=== PATIENT | female | born 1955 | race Caucasian/White ===

== ENCOUNTER 2017-02-05 11:16 | Emergency (ER) | payer OTHER ==
[2017-02-05] MEDS ORDERED: Ondansetron HCl/PF 4 MG/2 ML Vial ONE (12:15)
[2017-02-05 12:16] LABS: #Basophils 0.1 thou/uL (0.0-0.2); #Eosinphils 0.3 thou/uL (0.0-0.7); #Monocytes 0.9 thou/uL (0.11-0.59); #Neutrophils 5.9 thou/uL (1.40-6.50); %Basophils 1.1 % (0.0-1.0); %Lymphocytes 21.9 % (21.0-51.0); %Monocytes 9.5 % (0.0-10.0); Hematocrit 39.1 % (36.0-47.0); Mean Platelet Volume 7.7 fL (7.4-10.4); Red Blood Cell (RBC) Count 4.27 mill/uL (4.20-5.40); White Blood Cell (WBC) Count 9.1 thou/uL (4.8-10.8)
[2017-02-05 12:42] LABS: ALT (SGPT) 32 U/L (8-55); AST (SGOT) 22 U/L (5-34); Alkaline Phosphatase 104 U/L (40-150); Anion Gap 13 mmol/L (10-20); BUN (Urea Nitrogen) 20 mg/dL (9.8-20.1); Bilirubin, Total 0.6 mg/dL (0.2-1.2); CK (CPK) 44 U/L (29-168); Calc. Creatinine Clearance 0 mL/min (70-130); Calcium 9.8 mg/dL (7.8-10.44); Carbon Dioxide 27 mmol/L (23-31); Chloride 101 mmol/L (98-107); Estimated GFR-MDRD 56; Globulin 3.2 g/dL (2.4-3.5); Lipase 9 U/L (8-78); Protein, Total 7.5 g/dL (6.0-8.3)
[2017-02-05 12:51] LABS: Bilirubin Negative (Negative); Blood, Urine Negative (Negative); Glucose, Urine (Dipstick) Negative (Negative); Ketone, Urine Negative (Negative); Nitrite Positive (Negative); Protein, Urine (Dipstick) Negative (Neg-Trace); Urobilinogen 0.2 mg/dL (0.2-1.0)
[2017-02-05 12:54] LABS: Bacteria/HPF 4+ HPF (None Seen); Hyaline Casts/LPF 4-6 HYALINE CAST LPF (0-3 Hyaline); Squamous Epithelial 0-3 HPF (0-3)
--- NOTE | 2017-02-05 13:01 | CT ---
CT ABDOMEN AND PELVIS NONCONTRAST: HISTORY: Left flank pain. FINDINGS: Each renal collecting system and ureter are decompressed without stone apparent. Urinary bladder is incompletely distended. Lack of contrast limits evaluation for other abnormalities. A 1.0 cm oval soft tissue density nodul e is associated with the anterior margin of the right major pleural fissure just above the right dom e of the hemidiaphragm. Liver is diffusely hypodense. Calcified granulomata are consistent with healed granulomatous diseas e. There is calcification in the arterial structures. Inflammation within the fat of the left abdomen involves and surroundings the mid left colon. There are diverticula scattered about the colon. The appendix is surgically absent. IMPRESSION: 1. No CT evidence of urinary tract obstruction or calcification. 2. Left mid colon diverticulitis. 3. Hepatosteatosis. POS: [facility]
--- NOTE | 2017-02-08 06:41 | EKG ---
Test Reason : SOB Blood Pressure : / mmHG Vent. Rate : 079 BPM Atrial Rate : 079 BPM P-R Int : 148 ms QRS Dur : 084 ms QT Int : 380 ms P-R-T Axes : 061 046 058 degrees QTc Int : 435 ms Normal sinus rhythm with sinus arrhythmia Possible Left atrial enlargement Borderline ECG Confirmed by DIANA ZHAO, ROSA MARIA ([id number]), chairman president and chief executive officer TAY THOMAS ([id number]) on 02/08/2017 6:41:20 AM Referred By: Confirmed By:ROSA MARIA ORTIZ MD
== END 2017-02-05 14:14 | disposition home or self-care (01) ==
LOC: ERS 11:16
DX: K57.92 Diverticulitis of intestine, part unspecified, without perforation or abscess without bleeding (principal); N39.0 Urinary tract infection, site not specified; I10 Essential (primary) hypertension; J45.909 Unspecified asthma, uncomplicated; Z79.1 Long term (current) use of non-steroidal anti-inflammatories (NSAID); Z79.899 Other long term (current) drug therapy
CPT/HCPCS: 36415; 74176; 80053; 81003; 81015; 82550; 83690; 85025; 87077; 87086; 87186; 93005; 96361; 96374; 96375; J2270; J2405